=== PATIENT | male | born 2005 | race Caucasian/White ===

== ENCOUNTER 2025-05-11 15:01 | Emergency (ER) | payer MEDICAID, SELFPAY ==
[2025-05-11 15:03] VITALS: BP 158/79; PULSE 86; TEMP 36.6; O2SAT 100; BMI 25.1
--- OUTSIDE RECORDS SUMMARY | 2025-05-11 15:09 | XMS_ITS | Encounter Summary ---
Author Organization [facility] Address [address] [place] [address] Care Team Providers Care Store Grocery Merchandiser Name Role Phone Nella Kraft PHOTOFINISHING LABORATORY WORKER Primary Care Provider + Encounter Details Date Type Department Care Team (Latest Contact Info) Description 06/07/2006 Outpatient Historical [facility] Medicine [place] [address] [phone] Marjan Vazquez, [facility] [address] [phone] Unspecified Otitis Media (Primary Dx) Social History Tobacco Use Types Packs/Day Years Used Date Smoking Tobacco: Never Assessed Sex and Gender Information Value Date Recorded Sex Assigned at Not on file Legal Sex Male 3:55 AM FIELD TEST ENGINEER Gender Identity Not on file Sexual Orientation Not on file documented as of this encounter Plan of Treatment Not on file documented as of this encounter Visit Diagnoses Diagnosis Unspecified otitis media- Primary documented in this encounter Care Teams Store Grocery Merchandiser Relationship Specialty Start Date End Date Nella Kraft NP PCP - General Nurse Practitioner Family 10/19/20 documented as of this encounter
--- OUTSIDE RECORDS SUMMARY | 2025-05-11 15:09 | XMS_ITS | Encounter Summary ---
Author Organization [facility] Address [address] [place] [address] Care Team Providers Care Graduate Teaching Assistant Name Role Phone Nella Kraft ACID WASHER OPERATOR Primary Care Provider + Encounter Details Date Type Department Care Team (Latest Contact Info) Description 2005 Outpatient Historical [facility] Medicine [place] [address] [place] [address] [address] Michael Oreilly MD [address] [place] [phone] Routine child health exam (Primary Dx) Social History Tobacco Use Types Packs/Day Years Used Date Smoking Tobacco: Never Assessed Sex and Gender Information Value Date Recorded Sex Assigned at Not on file Legal Sex Male 3:55 AM DUST MOP MAKER Gender Identity Not on file Sexual Orientation Not on file documented as of this encounter Plan of Treatment Not on file documented as of this encounter Visit Diagnoses Diagnosis Routine child health exam- Primary Routine infant or child health check documented in this encounter Care Teams Graduate Teaching Assistant Relationship Specialty Start Date End Date Nella Kraft NP PCP - General Nurse Practitioner Family 10/19/20 documented as of this encounter
--- OUTSIDE RECORDS SUMMARY | 2025-05-11 15:09 | XMS_ITS | Encounter Summary ---
Author Organization [facility] Address [address] [place] [address] Care Team Providers Care Whipper Name Role Phone Nella Kraft REAL ESTATE OFFICER Primary Care Provider + Encounter Details Date Type Department Care Team (Latest Contact Info) Description 08/13/2006 Outpatient Historical [address] [phone] Sam Reynoso, ELEONORA [address] [place] [address] Unspecified Otitis Media (Primary Dx); Acute Tonsillitis Social History Tobacco Use Types Packs/Day Years Used Date Smoking Tobacco: Never Assessed Sex and Gender Information Value Date Recorded Sex Assigned at Not on file Legal Sex Male 3:55 AM WIRE MACHINE OPERATOR Gender Identity Not on file Sexual Orientation Not on file documented as of this encounter Plan of Treatment Not on file documented as of this encounter Visit Diagnoses Diagnosis Unspecified otitis media- Primary Acute tonsillitis documented in this encounter Care Teams Whipper Relationship Specialty Start Date End Date Nella Kraft NP PCP - General Nurse Practitioner Family 10/19/20 documented as of this encounter
--- OUTSIDE RECORDS SUMMARY | 2025-05-11 15:09 | XMS_ITS | Encounter Summary ---
Author Organization [facility] Address [address] [place] [address] Care Team Providers Care Director Hospice Operations Name Role Phone Nella Kraft VOCATIONAL ED INSTRUCTOR Primary Care Provider + Encounter Details Date Type Department Care Team (Latest Contact Info) Description 2005 Outpatient Historical [facility] Medicine [address] [phone] Cinda Valerio MD [address] [place] [phone] ACUTE PHARYNGITIS (Primary Dx); VOMITING ALONE Social History Tobacco Use Types Packs/Day Years Used Date Smoking Tobacco: Never Assessed Sex and Gender Information Value Date Recorded Sex Assigned at Not on file Legal Sex Male 3:55 AM BOILER HOUSE OPERATOR Gender Identity Not on file Sexual Orientation Not on file documented as of this encounter Plan of Treatment Not on file documented as of this encounter Visit Diagnoses Diagnosis Acute pharyngitis- Primary Vomiting alone documented in this encounter Care Teams Director Hospice Operations Relationship Specialty Start Date End Date Nella Kraft NP PCP - General Nurse Practitioner Family 10/19/20 documented as of this encounter
--- OUTSIDE RECORDS SUMMARY | 2025-05-11 15:09 | XMS_ITS | Encounter Summary ---
Author Organization [facility] Address [address] [place] [address] Care Team Providers Care Plastics Bench Mechanic Name Role Phone Nella Kraft TILE AND MOTTLE SUPERVISOR Primary Care Provider + Encounter Details Date Type Department Care Team (Latest Contact Info) Description 2005 Outpatient Historical [address] [phone] Cinda Valerio MD [address] [place] [phone] ABDOMINAL PAIN UNSPEC SITE (Primary Dx); UPPER RESP DIS NEC/NOS; APNEA Social History Tobacco Use Types Packs/Day Years Used Date Smoking Tobacco: Never Assessed Sex and Gender Information Value Date Recorded Sex Assigned at Not on file Legal Sex Male 3:55 AM AIRCRAFT WORKER Gender Identity Not on file Sexual Orientation Not on file documented as of this encounter Plan of Treatment Not on file documented as of this encounter Visit Diagnoses Diagnosis Abdominal pain, unspecified site- Primary Other and unspecified diseases of upper respiratory tract Apnea documented in this encounter Care Teams Plastics Bench Mechanic Relationship Specialty Start Date End Date Nella Kraft NP PCP - General Nurse Practitioner Family 10/19/20 documented as of this encounter
--- OUTSIDE RECORDS SUMMARY | 2025-05-11 15:09 | XMS_ITS | Clinical Summary ---
Author Organization [facility] Address [address] [place] [address] Care Team Providers Care Molder Pipe Covering Name Role Phone Nella Kraft VOLUNTEER SERVICES MANAGER Primary Care Provider + Allergies No known active allergies Medications antipyrine-benzo chris (AURODEX) 5.4-1.4 % OT DropIndications: Acute suppurative otitis media Administer 5 Drops in both ears every 4 hours. 1 Bottle 0 1 Active ibuprofen (MOTRIN) 800 mg tablet Take 800 mg by mouth every 6 hours as needed for Pain, Mild. Active Active Problems No known active problems Immunizations Immunization Administration Dates Next Due (M-M-R II/PRIORIX)(12 MO UP) MEASLES, MUMPS AND RUBELLA VIRUS VACCINE, 0.5 ML IM/SUBCUT 02/25/2007 (VARIVAX)(12 MOS UP)VARICELL A VIRUS VACCINE (PF) 0.5 ML, SUB CUT 02/25/2007 DTaP Vaccine < 7 YO IM VFC 01/26/2010 Dt Dtp Dtap Vaccine 02/25/2007, 6,2005,2004 HIB, Unspecified Formulation 2005,08/10/19 06,2005 Hepatitis B Vaccine 2005,2005,2004 IPV/OPV 2005,2005,2005 MMR Vaccine SQ VFC 01/26/2010 Pneumococcal 7-valent conjug ate vaccine IM 2005,2005,2005 Poliovirus IPV VFC 01/26/2010 Varicella Vaccine Live Sq [facility] 01/26/2010 Family History Medical History Relation Name Comments Diabetes Maternal Grandfather Cancer Other Relation Name Status Comments Maternal Grandfather Other Social History Tobacco Use Types Packs/Day Years Used Date Smoking Tobacco: Never Smokeless Tobacco: Never Sex and Gender Information Value Date Recorded Sex Assigned at Not on file Legal Sex Male 3:55 AM ANATOMIC PATHOLOGY ASSISTANT Gender Identity Not on file Sexual Orientation Not on file Last Filed Vital Signs Vital Sign Reading Time Taken Comments Blood Pressure 139/85 10/28/2020 8:30 AM CDT Provider Notified Pulse 61 10/28/2020 8:30 AM CDT Temperature 37.3 C (99.1 F) 08/05/2010 10:12 AM CDT Respiratory Rate 24 08/05/2010 10:1 2 AM CDT Oxygen Saturation - - Inhaled Oxygen Concentration - - Weight 75.8 kg (167 lb) 10/28/2020 8:30 AM CDT Height 177.8 cm (5' 10 ) 10/28/2020 8:3 0 AM CDT Body Mass Index 23.96 10/28/2020 8:30 AM CDT Plan of Treatment Health Maintenance Due Date Last Done Comments CHLAMYDIA SCREENING (ANNUAL) 11-24 YEARS 01/03/2016 DTAP/TDAP/TD VACCINES (6 - Tdap) 01/03/2016 01/26/2010, 02/25/2007, 2005, Additional history exists HPV VACCINES (1 - Male 3-dos e series) 01/03/2020 INFLUENZA VACCINE (#1) 2024 HEPATITIS B VACCINES Completed 2005, 2005, [address] [place] [address] [employer] Care Teams Molder Pipe Covering Relationship Specialty Start Date End Date Nella Kraft NP PCP - General Nurse Practitioner Family 10/19/20
--- OUTSIDE RECORDS SUMMARY | 2025-05-11 15:09 | XMS_ITS | Encounter Summary ---
Author Organization [facility] Address [address] [place] [address] Care Team Providers Care Hand Inspector Name Role Phone Nella Kraft PUBLIC SERVICE OFFICER Primary Care Provider + Encounter Details Date Type Department Care Team (Latest Contact Info) Description 2005 Outpatient Historical [facility] Medicine [place] [address] [place] 16[place] [address] Michael Oreilly MD [address] [place] [phone] Routine Child Health Exam (Primary Dx) Social History Tobacco Use Types Packs/Day Years Used Date Smoking Tobacco: Never Assessed Sex and Gender Information Value Date Recorded Sex Assigned at Not on file Legal Sex Male 3:55 AM SAMPLE CUTTER Gender Identity Not on file Sexual Orientation Not on file documented as of this encounter Plan of Treatment Not on file documented as of this encounter Visit Diagnoses Diagnosis Routine child health exam- Primary Routine infant or child health check documented in this encounter Care Teams Hand Inspector Relationship Specialty Start Date End Date Nella Kraft NP PCP - General Nurse Practitioner Family 10/19/20 documented as of this encounter
--- OUTSIDE RECORDS SUMMARY | 2025-05-11 15:09 | XMS_ITS | Encounter Summary ---
Author Organization [facility] Address [address] [place] [address] Care Team Providers Care Manager Plant Name Role Phone Nella Kraft BOOTMAKER HAND Primary Care Provider + Encounter Details Date Type Department Care Team (Latest Contact Info) Description 2005 Outpatient Historical [address] [phone] Sam Reynoso, ELEONORA [address] [place] [address] OTITIS MEDIA NOS (Primary Dx); ACUTE PHARYNGITIS; GASTRITIS/DUODEN NOS W/O HEMORRH Social History Tobacco Use Types Packs/Day Years Used Date Smoking Tobacco: Never Assessed Sex and Gender Information Value Date Recorded Sex Assigned at Not on file Legal Sex Male 3:55 AM PHYSICAL THERAPIST TECHNICIAN Gender Identity Not on file Sexual Orientation Not on file documented as of this encounter Plan of Treatment Not on file documented as of this encounter Visit Diagnoses Diagnosis Unspecified otitis media- Primary Acute pharyngitis Unspecified gastritis and gastroduodenitis without mention of hemorrhage documented in this encounter Care Teams Manager Plant Relationship Specialty Start Date End Date Nella Kraft NP PCP - General Nurse Practitioner Family 10/19/20 documented as of this encounter
--- OUTSIDE RECORDS SUMMARY | 2025-05-11 15:09 | XMS_ITS | Encounter Summary ---
Author Organization [facility] Address [address] [place] [address] Care Team Providers Care Mail Messenger Contractor Name Role Phone Nella Kraft MANAGER PRIVATE Primary Care Provider + Encounter Details Date Type Department Care Team (Latest Contact Info) Description 02/05/[address] [phone] Sam Reynoso, ELEONORA [address] [place] [address] Unspecified Otitis Media (Primary Dx) Social History Tobacco Use Types Packs/Day Years Used Date Smoking Tobacco: Never Assessed Sex and Gender Information Value Date Recorded Sex Assigned at Not on file Legal Sex Male 3:55 AM POULTRY AND FISH BUTCHER Gender Identity Not on file Sexual Orientation Not on file documented as of this encounter Plan of Treatment Not on file documented as of this encounter Visit Diagnoses Diagnosis Unspecified otitis media- Primary documented in this encounter Care Teams Mail Messenger Contractor Relationship Specialty Start Date End Date Nella Kraft NP PCP - General Nurse Practitioner Family 10/19/20 documented as of this encounter
--- OUTSIDE RECORDS SUMMARY | 2025-05-11 15:09 | XMS_ITS | Encounter Summary ---
Author Organization [facility] Address [address] [place] [address] Care Team Providers Care Fast Food Manager Name Role Phone Nella Kraft AUTO MECHANIC Primary Care Provider + Encounter Details Date Type Department Care Team (Latest Contact Info) Description 2005 Outpatient [address] [phone] Sam Reynoso, AUTO MECHANIC [address] [place] [address] ACUTE URI NOS (Primary Dx) Social History Tobacco Use Types Packs/Day Years Used Date Smoking Tobacco: Never Assessed Sex and Gender Information Value Date Recorded Sex Assigned at Not on file Legal Sex Male 3:55 AM STROKE PROGRAM COORDINATOR Gender Identity Not on file Sexual Orientation Not on file documented as of this encounter Plan of Treatment Not on file documented as of this encounter Visit Diagnoses Diagnosis Acute upper respiratory infections of unspecified site- Primary documented in this encounter Care Teams Fast Food Manager Relationship Specialty Start Date End Date Nella Kraft NP PCP - General Nurse Practitioner Family 10/19/20 documented as of this encounter
--- OUTSIDE RECORDS SUMMARY | 2025-05-11 15:09 | XMS_ITS | Encounter Summary ---
Author Organization [facility] Address [address] [place] [address] Care Team Providers Care Auto Porter Name Role Phone Nella Kraft BOATHOUSE KEEPER Primary Care Provider + Encounter Details Date Type Department Care Team (Latest Contact Info) Description 2005 Outpatient Historical [facility] [address], [place] [address] Michael Oreilly MD [address] [place] [phone] Routine child health exam (Primary Dx) Social History Tobacco Use Types Packs/Day Years Used Date Smoking Tobacco: Never Assessed Sex and Gender Information Value Date Recorded Sex Assigned at Not on file Legal Sex Male 3:55 AM AGRICULTURE RESEARCH DIRECTOR Gender Identity Not on file Sexual Orientation Not on file documented as of this encounter Plan of Treatment Not on file documented as of this encounter Visit Diagnoses Diagnosis Routine child health exam- Primary Routine infant or child health check documented in this encounter Care Teams Auto Porter Relationship Specialty Start Date End Date Nella Kraft NP PCP - General Nurse Practitioner Family 10/19/20 documented as of this encounter
--- OUTSIDE RECORDS SUMMARY | 2025-05-11 15:09 | XMS_ITS | Encounter Summary ---
Author Organization [facility] Address [address] [place] [address] Care Team Providers Care Senior Qualitative Researcher Name Role Phone Nella Kraft MARKET RISK ANALYST Primary Care Provider + Encounter Details Date Type Department Care Team (Latest Contact Info) Description 2005 Outpatient [facility] Medicine [address] [phone] Urban Candelaria MD [address] [place] [address] Ingrowing Nail (Primary Dx); Unspecified Otitis Media Social History Tobacco Use Types Packs/Day Years Used Date Smoking Tobacco: Never Assessed Sex and Gender Information Value Date Recorded Sex Assigned at Not on file Legal Sex Male 3:55 AM BRAKE LININGS COATER Gender Identity Not on file Sexual Orientation Not on file documented as of this encounter Plan of Treatment Not on file documented as of this encounter Visit Diagnoses Diagnosis Ingrowing nail- Primary Unspecified otitis media documented in this encounter Care Teams Senior Qualitative Researcher Relationship Specialty Start Date End Date Nella Kraft NP PCP - General Nurse Practitioner Family 10/19/20 documented as of this encounter
--- OUTSIDE RECORDS SUMMARY | 2025-05-11 15:09 | XMS_ITS | Encounter Summary ---
Author Organization [facility] Address [address] [place] [address] Care Team Providers Care Project Account Manager Name Role Phone Nella Kraft IRRIGATIONIST Primary Care Provider + Encounter Details Date Type Department Care Team (Late st Contact Info) Description 06/20/2018 Ancillary Orders [facility] Pre-Registration Gunpowder CALL TO MAKE APPOINTMENT ONLY [address] [place] [phone] Nella Kraft, ELEONORA [address] [place] [address] Coccyx pain Social History Tobacco Use Types Packs/Day Years Used Date Smoking Tobacco: Never Assessed Sex and Gender Information Value Date Recorded Sex Assigned at Not on file Legal Sex Male 3:55 AM CLERK SECRETARY Gender Identity Not on file Sexual Orientation Not on file documented as of this encounter Plan of Treatment Not on file documented as of this encounter Visit Diagnoses Diagnosis Coccyx pain Other disorder of coccyx documented in this encounter Care Teams Project Account Manager Relationship Specialty Start Date End Date Nella Kraft NP PCP - General Nurse Practitioner Family 10/19/20 documented as of this encounter
--- OUTSIDE RECORDS SUMMARY | 2025-05-11 15:09 | XMS_ITS | Encounter Summary ---
Author Organization [facility] Address [address] [place] [address] Care Team Providers Care Behavioral Psychologist Name Role Phone Nella Kraft ANTIQUER Primary Care Provider + Encounter Details Date Type Department Care Team (Latest Contact Info) Description 2005 Outpatient Historical [facility] [address] [place] [address] [address] Michael Oreilly MD [address] [place] [phone] Routine child health exam (Primary Dx) Social History Tobacco Use Types Packs/Day Years Used Date Smoking Tobacco: Never Assessed Sex and Gender Information Value Date Recorded Sex Assigned at Not on file Legal Sex Male 3:55 AM WAREHOUSE MATERIAL HANDLER Gender Identity Not on file Sexual Orientation Not on file documented as of this encounter Plan of Treatment Not on file documented as of this encounter Visit Diagnoses Diagnosis Routine child health exam- Primary Routine infant or child health check documented in this encounter Care Teams Behavioral Psychologist Relationship Specialty Start Date End Date Nella Kraft NP PCP - General Nurse Practitioner Family 10/19/20 documented as of this encounter
--- OUTSIDE RECORDS SUMMARY | 2025-05-11 15:09 | XMS_ITS | Encounter Summary ---
Author Organization [facility] Address [address] [place] [address] Care Team Providers Care Mask Former Name Role Phone Nella Kraft RECORD RETRIEVAL SPECIALIST Primary Care Provider + Encounter Details Date Type Department Care Team (Latest Contact Info) Description 2005 Outpatient Historical [address] [phone] Sam Reynoso, ELEONORA [address] [place] [address] ACUTE URI NOS (Primary Dx); ASTHMA UNSPECIFIED; ACUTE PHARYNGITIS Social History Tobacco Use Types Packs/Day Years Used Date Smoking Tobacco: Never Assessed Sex and Gender Information Value Date Recorded Sex Assigned at Not on file Legal Sex Male 3:55 AM PLAY THERAPIST Gender Identity Not on file Sexual Orientation Not on file documented as of this encounter Plan of Treatment Not on file documented as of this encounter Visit Diagnoses Diagnosis Acute upper respiratory infections of unspecified site- Primary Unspecified asthma(493.90) Unspecified asthma Acute pharyngitis documented in this encounter Care Teams Mask Former Relationship Specialty Start Date End Date Nella Kraft NP PCP - General Nurse Practitioner Family 10/19/20 documented as of this encounter
--- OUTSIDE RECORDS SUMMARY | 2025-05-11 15:09 | XMS_ITS | Encounter Summary ---
Author Organization [facility] Address [address] [place] [address] Care Team Providers Care Bariatric Physician Name Role Phone Nella Kraft TRUCK REPAIR SERVICE ESTIMATOR Primary Care Provider + Encounter Details Date Type Department Care Team (Latest Contact Info) Description 02/25/2007 Outpatient Historical [address] [phone] Sam Reynoso, ELEONORA [address] [place] [address] Routine Child Health Exam (Primary Dx) Social History Tobacco Use Types Packs/Day Years Used Date Smoking Tobacco: Never Assessed Sex and Gender Information Value Date Recorded Sex Assigned at Not on file Legal Sex Male 3:55 AM MERCERIZER MACHINE OPERATOR Gender Identity Not on file Sexual Orientation Not on file documented as of this encounter Plan of Treatment Not on file documented as of this encounter Visit Diagnoses Diagnosis Routine child health exam- Primary Routine or child health check documented in this encounter Care Teams Bariatric Physician Relationship Specialty Start Date End Date Nella Kraft NP PCP - General Nurse Practitioner Family 10/19/20 documented as of this encounter
--- OUTSIDE RECORDS SUMMARY | 2025-05-11 15:09 | XMS_ITS | Encounter Summary ---
Author Organization [facility] Address [address] [place] [address] Care Team Providers Care Bleacher Pulp Name Role Phone Nella Kraft NITROGEN OPERATOR Primary Care Provider + Encounter Details Date Type Department Care Team (Latest Contact Info) Description 2005 Outpatient Historical [facility] Medicine [place] [address] [phone] Michael Oreilly MD [address] [place] [phone] Routine Child Health Exam (Primary Dx) Social History Tobacco Use Types Packs/Day Years Used Date Smoking Tobacco: Never Assessed Sex and Gender Information Value Date Recorded Sex Assigned at Not on file Legal Sex Male 3:55 AM INDUSTRIAL REGISTERED NURSE Gender Identity Not on file Sexual Orientation Not on file documented as of this encounter Plan of Treatment Not on file documented as of this encounter Visit Diagnoses Diagnosis Routine child health exam- Primary Routine infant or child health check documented in this encounter Care Teams Bleacher Pulp Relationship Specialty Start Date End Date Nella Kraft NP PCP - General Nurse Practitioner Family 10/19/20 documented as of this encounter
--- OUTSIDE RECORDS SUMMARY | 2025-05-11 15:09 | XMS_ITS | Clinical Summary ---
Author Organization [facility] Address [address] [place] [address] Care Team Providers Care Emt Basic Name Role Phone Nella Kraft CLINICAL TRANSFORMATION SPECIALIST Primary Care Provider + Allergies No known active allergies Medications ibuprofen (MOTRIN) 800 mg tablet Take 800 mg by mouth every 6 hours as needed for Pain, Mild. 10/28/2020 Active Active Problems Problem Noted Date Diagnosed Date Spell of altered cognition 08/23/2022 ADHD 07/21/2022 Immunizations Immunization Administration Dates Next Due (M-M-R [...] IPV VFC 01/26/2010 Varicella Vaccine Live Sq VFC 01/26/2010 Family History Medical History Relation Name Comments Diabetes Maternal Grandfather Cancer Other Fainting Neg Hx Seizures Neg Hx Relation Name Status Comments Maternal Grandfather Other Social History Tobacco Use Types Packs/Day Years Used Date Smoking Tobacco: Never Smokeless Tobacco: Never Adolescent Education Answer Date Record ed Getting School Help Needed Not on file 12/13 Sex and Gender Information Value Date Recorded Sex Assigned at Not on file Legal Sex Male 9:26 AM ROLLING MACHINE TENDER Gender Identity Not on file Sexual Orientation Not on file Last Filed Vital Signs Vital Sign Reading Time Taken Comments Blood Pressure 142/55 07/21/2022 8:37 AM ROLLING MACHINE TENDER Pulse 75 07/21/2022 8:37 AM ROLLING MACHINE TENDER Temperature - - Respiratory Rate - - Oxygen Saturation 100% 07/21/2022 8:37 AM ROLLING MACHINE TENDER Inhaled Oxygen Concentration - - Weight 77.3 kg (170 lb 7 oz) 07/21/2022 8:37 AM ROLLING MACHINE TENDER Height 178 cm (5' 10.08 ) 07/21/2022 8:37 AM ROLLING MACHINE TENDER Body Mass Index 24.4 07/21/2022 8:37 AM ROLLING MACHINE TENDER Plan of Treatment Health Maintenance Due Date Last Done Comments CHLAMYDIA SCREENING (ANNUAL) 11-24 YEARS 01/03/2016 DTAP/TDAP/TD VACCINES (6 - Tdap) 01/03/2016 01/26/2010, 02/25/2007, 2005, Additional history exists HPV VACCINES (1 - Male 3-dos e series) 01/03/2020 INFLUENZA VACCINE (#1) 2024 HEPATITIS B VACCINES Completed 2005, 2005, 2005 Insurance [facility] MEDICAID [facility] [employer] MEDICAID Care Teams Emt Basic Relationship Specialty Start Date End Date Nella Kraft NP PCP - General 10/19/20
--- NOTE | 2025-05-11 15:27 | XR_ITS ---
WS: [id number] Right clavicle, 2 views, 05/11/2025 Clinical Data: shoulder and clavicle pain Comparison: None. Findings: No fractures or dislocations are seen. The AC joint is normal. The soft tissues are unremarkable. The sternoclavicular joint is normal. XR/[place] [id number] Impression: Negative right clavicle.
--- NOTE | 2025-05-11 15:27 | XR_ITS ---
WS: [id number] Right shoulder, 3 views, 05/11/2025 Clinical Data: shoulder and clavicle pain Comparison: None. Findings: No fractures or dislocations are seen. The glenohumeral joint is normal. The AC joint is normal. The adjacent right clavicle, right scapula and ribs are normal. The soft tissues are unremarkable. XR/XR shoulder RT min 2V* [id number] Impression: Negative right shoulder.
--- NOTE | 2025-05-11 16:45 | W.ED.EXTPRO ---
HPI - Extremity Problem General: Chief complaint: Extremity Injury, Upper Stated complaint: R collar bone popping, pain Time Seen by Provider: 05/11/25 15:58 Source: patient Mode of arrival: ambulatory Limitations: no limitations History of Present Illness: Patient is a 20-year-old male who presents to ED today with complaint of right sternoclavicular joint pain. He states 3 months ago he was lifting a dresser when he heard a pop near the area. He feels like symptoms did improve over the next several weeks but feels like recently he has been noticing more popping and crepitus in the joint. He continues to maintain normal range of motion of the right shoulder. He does not complain of dysphagia, dyspnea, or upper extremity paresthesias. MD Complaint: other (Right sternoclavicular pain) Onset (ago): month(s) Pain Consistency: intermittent Location: right Radiation: none Relieving factors: nothing Exacerbating factors: range of motion Associated symptoms: Reports no associated symptoms Related Data Previous Rx's ?Medication ?Instructions ?Recorded cephalexin 500 mg capsule 500 mg PO BID #14 caps 08/21/24 Allergies Allergy/AdvReac Type Severity Reaction Status Date / Time No Known Allergies Allergy Verified 05/11/25 15:08 Review of Systems ENMT: Reports: other (No dysphagia) Resp: Denies: dyspnea Musc: Reports: other (Right sternoclavicular pain); Denies: neck pain or back pain Neuro: Denies: numbness in extremities, weakness in extremities or sensory changes PFS ED PFSH: Social History Smoking and tobacco/nicotine status: current every day tobacco/nicotine user Physical Exam Const: COMMON NORMALS: no acute distress, average body habitus, patient oriented x3, no limitations, healthy appearing, alert and well nourished GENERAL APPEARANCE: cooperative Neck/C-Spine: COMMON NORMALS: full ROM GENERAL: Yes normal visual inspection Chest: COMMONS NORMALS: normal inspection of the chest OTHER: reports tenderness at R sternoclavicular joint with range of motion of shoulder; occasional clicking/popping noted with certain movements no concern for sternoclavicular dislocation Resp: COMMON NORMALS: normal respiratory effort and clear to auscultation bilaterally AUSCULTATION: clear to auscultation bilaterally Cardio: COMMON NORMALS: regular rate and regular rhythm RATE: regular rate RHYTHM: regular rhythm Back/Pelvis: COMMON NORMALS: thoracic and lumbar spine normal to inspection and no thoracic nor lumbar tenderness Extremity: COMMON NORMALS: normal to inspection, full ROM and capillary refill normal GENERAL: Yes normal exam except as noted Neuro: COMMON NORMALS: patient oriented x3 SENSORIUM/ORIENTATION: Yes alert Course Vital Signs: Vital signs: Vital Signs Temperature 97.8 F 05/11/25 15:03 Pulse Rate 86 05/11/25 15:03 Blood Pressure 158/79 05/11/25 15:03 Pulse Oximetry 100 05/11/25 15:03 Oxygen Delivery Me thod Room Air 05/11/25 15:03 MDM - Extremity (Nontraumatic) Medical Decision Making XRs right clavicle and shoulder were obtained and unremarkable. No concerns for sternoclavicular dislocation based on history and physical exam. Recommend follow-up with primary care for further evaluation/treatment. Medical Records I reviewed the patient's medical records. Lab Data Radiology Impressions Clavicle X-Ray 05/11/25 15:27 Impression: Negative right clavicle. Shoulder X-Ray 05/11/25 15:27 Impression: Negative right shoulder. All radiology interpretation(s) finalized by discharge Discharge Plan Discharge Patient Disposition: Home Clinical Impression: Sternoclavicular joint pain Qualifiers: Laterality: right Qualified Code(s): M25.511 - Pain in right shoulder Condition: Stable Prescriptions: No Action cephalexin 500 mg capsule 500 mg PO BID Qty: 14 0RF Discharge Orders: Discharge ED (Routine); Ordered 05/11/25 Ordered By: Rosie Logan Referrals: Nella Kraft NP [Primary Care Provider, Nurse Practitioner] Patient Instructions: Patient Portal & Ashu Instructions Activity Restrictions/Additional Instructions: As we discussed, your x-rays today are unremarkable. We spoke about following up with primary care for further evaluation and treatment of symptoms. Print Language: Guatemalan Coding Level of Care Code ED Strategic Accounts Manager for Jigar Dunn
[2025-05-11 16:58] VITALS: BP 126/84; PULSE 77; RESP 17; O2SAT 95
== END 2025-05-11 16:59 | disposition home or self-care (01) ==
PROVIDERS: Emergency Provider Physician Assistant; PCP Nurse Practitioner Family
DX: M25.511 Pain in right shoulder (principal); Z72.0 Tobacco use
CPT/HCPCS: 73000; 73030; 99283